=== PATIENT | female | born 1935 | race Caucasian/White ===

== ENCOUNTER 2023-08-11 10:45 | Inpatient (IN) | payer MEDICARE, MEDICAID, SELFPAY ==
[2023-08-11] VITALS (19 sets, daily range): BP systolic 132–226; BP diastolic 65–120; PULSE 80–104; RESP 15–23; TEMP 36.7–36.8; O2SAT 94–100; BMI 26.2
--- NOTE | 2023-08-11 11:17 | PC.PHAR ---
PT STATES HAS NOT TAKEN ANY OF HER MEDICATIONS FOR 2 DAYS DUE TO CURRENT ISSUE. 08/11/23
--- NOTE | 2023-08-11 11:40 | ED_ITS ---
HPI - GI Bleed 2 General: Chief complaint: GI Bleed Stated complaint: blood in stool Time Seen by Provider: 08/11/23 11:13 Source: patient Mode of arrival: ambulatory History of Present Illness: 87-year-old female presents to the [facility] ency room with blood in the stool. She woke yesterday with diarrhea had had some blood in her stool then and then again this morning she woke with significant amounts of blood. No significant abdominal pain. She denies any vomiting. Blood she passed was a combination of bright red blood in maroonish stool. No hemoptysis or coffee-ground emesis. She is not on any anticoagulants does take aspirin daily she had routine colonoscopies to the age of 77 these were negative for any significant pathology. Her only previous abdominal surgery was an appendectomy. Associated symptoms: Denies abdominal pain, chills, fever(s) or rash Review of Systems 2 Const: Denies: fever(s) or chills Card: Denies: chest pain Resp: Denies: dyspnea GI: Reports: hematochezia; Denies: abdominal pain : Denies: dysuria, urinary frequency or urinary urgency Musc: Denies: neck pain or back pain Skin/Breast: Denies: rash PFSH ED 2 PFSH: Medical History (Updated 08/11/23 @ 16:05 by Nathen Phan DO) Type 2 diabetes mellitus Hypertension Surgical History (Updated 08/11/23 @ 11:41 by Nathen Phan DO) Hx of appendectomy Physical Exam 2 Const: COMMON NORMALS: no acute distress GENERAL APPEARANCE: cooperative and comfortable ORIENTATION/CONSCIOUSNESS: Yes awake, Yes oriented to person, Yes oriented to place and Yes oriented to time HENMT: COMMON NORMALS: normocephalic, atraumatic and hearing grossly normal bilaterally HEAD & SCALP: normocephalic and atraumatic Resp: COMMON NORMALS: normal respiratory effort, No retractions, No use of accessory muscles and clear to auscultation bilaterally AUSCULTATION: clear to auscultation bilaterally Cardio: COMMON NORMALS: regular rate, regular rhythm and No murmurs present (Cardio) RATE: regular rate RHYTHM: regular rhythm GI: COMMON NORMALS: Soft to palpation and No hepatosplenomegaly present A USCULTATION: Yes normoactive bowel sounds PALPATION: Yes Soft to palpation, No Tenderness to palpation present (GI), No Guarding due to palpation present (GI) and Yes No hepatosplenomegaly present Extremity: COMMON NORMALS: normal to inspection, capillary refill normal, no clubbing, cyanosis or edema, no calf tenderness and no pedal edema Neuro: SENSORIUM/ORIENTATION: Yes oriented to person, Yes oriented to place and Yes oriented to time Skin: COMMON NORMALS: no rashes or lesions noted GENERAL SKIN EXAM: no rashes or lesions noted Course 2 Vital Signs: Vital signs: Vital Signs Temperature 98.1 F 08/11/23 10:54 Pulse Rate 104 H 08/11/23 11:51 Respiratory Rate 23 H 08/11/23 11:51 Blood Pressure 164/73 08/11/23 12:03 Pulse Oximetry 100 08/11/23 11:51 Oxygen Delivery Me thod Room Air 08/11/23 11:51 MDM - GI Bleed Medical Decision Making Rectal exam with maroonish colored stool which is sharply Hemoccult positive. Hemoglobin 8.8 initially and repeat is 8.4 we do not have a base to compare to. Will admit to cover with antibiotics possibility of diverticular source of bleeding although there is no signs of diverticulitis on the CT. Keep patient n.p.o. start Protonix. Differential Diagnosis Likely hematochezia and melena Medical Records I reviewed the patient's medical records. Lab Data I reviewed the patient's lab results. 08/11/23 15:39 08/11/23 11:30 Radiology Impressions Abdomen/Pelvis CT 08/11/23 12:59 IMPRESSION: 1. Right upper pole renal cyst possibly complicated by thin internal septation. Recommend ultrasound for initial further characterization. 2. Moderate-sized hiatal hernia. Findings consistent with several duodenal diverticuli without secondary evidence of acute inflammatory change. 3. Severe colonic diverticulosis without secondary evidence of acute diverticulitis. 4. Diffuse bladder wall thickening, possible layering soft tissue density material in the dependent portion of the bladder. This could reflect inflammatory debris or hemorrhage or other process. Recommend correlation with urinalysis and consideration for cystoscopy 5. Findings consistent with small uterine fibroids. Six. Please see above additional comments. COMMENTS: Consistent with the [employer]'s Incidental Findings Committee white paper (J Am Kristopher Radiol 2018): Any incidental renal lesion less than 1 cm or classified as too small to characterize, or any incidental cystic renal lesion characterized as simple-appearing, is likely benign. No follow-up imaging is recommended for these lesions per consensus recommendations based on imaging criteria. Laboratory Results WBC 5.47 10^3/uL (3.29-11.43) 08/11/23 15:39 RBC 2.82 10^6/uL (3.85-5.65) L 08/11/23 15:39 Hgb 8.40 g/dL (11.27-16.99) L 08/11/23 15:39 Hct 26.4 % (36-47) L 08/11/23 15:39 MCV 93.6 fl (85-98) 08/11/23 15:39 MCH 29.8 pg (27-33) 08/11/23 15:39 MCHC 31.8 g/dL (30-55) 08/11/23 15:39 RDW 12.9 % (12.1-15.1) 08/11/23 15:39 Plt Count 216 10^3/cmm (157-399) 08/11/23 15:39 MPV 9.4 fL (7.4-10.4) 08/11/23 15:39 Neut % (Auto) 60.0 % 08/11/23 15:39 Lymph % (Auto) 29.1 % 08/11/23 15:39 [place] % (Auto) 9.3 % 08/11/23 15:39 Eos % (Auto) 0.9 % 08/11/23 15:39 Baso % (Auto) 0.5 % 08/11/23 15:39 Neut # (Auto) 3.28 10^3/uL (1.8-7.7) 08/11/23 15:39 Lymph # (Auto) 1.6 10^3/uL (0.8-4.8) 08/11/23 15:39 [place] # (Auto) 0.5 10^3/uL (0.2-0.9) 08/11/23 15:39 Eos # (Auto) 0.1 10^3/uL (0.0-0.8) 08/11/23 15:39 Baso # (Auto) 0.0 10^3/uL (0.0-0.1) 08/11/23 15:39 Nucleated RBC % (auto) 0 % 08/11/23 15:39 Nucleated RBCs # 0.0 /100WBC 08/11/23 15:39 PT 13.50 SECONDS (12.1-14.9) 08/11/23 11:30 INR 1.00 (0.8-1.2) 08/11/23 11:30 APTT 19.5 SECONDS (23.9-36.7) L 08/11/23 11:30 Sodium 143 mmol/L (136-145) 08/11/23 11:30 Potassium 4.0 mmol/L (3.5-5.1) 08/11/23 11:30 Chloride 108 mmol/L (98-107) H 08/11/23 11:30 Carbon Dioxide 26 mmol/L (22-29) 08/11/23 11:30 Anion Gap 13.0 (5-19) 08/11/23 11:30 BUN 25 mg/dL (8-23) H 08/11/23 11:30 Creatinine 0.5 mg/dL (0.5-0.9) 08/11/23 11:30 GFR Calculation Not Reportable 08/11/23 11:30 Glucose 125 mg/dL (65-115) H 08/11/23 11:30 Calculated Osmolality 302 mOsm/kg (285-295) H 08/11/23 11:30 Calcium 8.9 mg/dL (8.5-10.5) 08/11/23 11:30 Total Bilirubin 0.3 mg/dL (0.15-1.2) 08/11/23 11:30 AST 13 U/L (0-32) 08/11/23 11:30 ALT 6 U/L (0-33) 08/11/23 11:30 Alkaline Phosphatase 63 U/L (35-105) 08/11/23 11:30 Total Protein 6.3 g/dL (6.6-8.7) L 08/11/23 11:30 Albumin 3.9 g/dL (3.5-5.2) 08/11/23 11:30 Globulin 2.4 g/dL (1.3-4.6) 08/11/23 11:30 Blood Type O Positive 08/11/23 11:30 Rho(D) Type Rh positive 08/11/23 11:30 Antibody Screen Negative 08/11/23 11:30 All radiology interpretation(s) finalized by discharge Discharge Plan Discharge Patient Disposition: Admitted As Inpatient Clinical Impression: GI bleed, Anemia Condition: Stable Prescriptions: No Action metformin 500 mg tablet 500 mg PO DAILY enalapril maleate 20 mg tablet 20 mg PO DAILY simvastatin 40 mg tablet 40 mg PO DAILY omeprazole 20 mg capsule,delayed release(DR/EC) 20 mg PO DAILY hydrochlorothiazide 25 mg tablet 25 mg PO DAILY naproxen 500 mg tablet 500 mg PO BID Referrals: Mitzi Armendariz NARCOTICS AGENT [Primary Care Provider] - Coding Level of Care Code ED Coordinator Volunteer Services for [facility] Guillaume
[2023-08-11 11:42] LABS: Basophils % 0.4 %; Eosinophils % 0.2 %; Hematocrit 28.5 % (36-47); Lymphocytes # 1.3 10^3/uL (0.8-4.8); Lymphocytes % 22.8 %; Mean Corpuscular HGB Conc 30.9 g/dL (30-55); Mean Corpuscular Volume 94.1 fl (85-98); Mean Platelet Volume 9.9 fL (7.4-10.4); Monocytes # 0.4 10^3/uL (0.2-0.9); Monocytes % 6.7 %; Neutrophils # 3.85 10^3/uL (1.8-7.7); Neutrophils % 69.7 %; Nucleated Red Blood Cells % 0 %; Platelet Count 220 10^3/cmm (157-399); Red Blood Count 3.03 10^6/uL (3.85-5.65); White Blood Count 5.52 10^3/uL (3.29-11.43)
[2023-08-11 12:03] LABS: Alanine Aminotransferase 6 U/L (0-33); Albumin Level 3.9 g/dL (3.5-5.2); Alkaline Phosphatase 63 U/L (35-105); Aspartate Amino Transferase 13 U/L (0-32); Blood Urea Nitrogen 25 mg/dL (8-23); Calcium 8.9 mg/dL (8.5-10.5); Carbon Dioxide 26 mmol/L (22-29); Chloride 108 mmol/L (98-107); Globulin 2.4 g/dL (1.3-4.6); Glucose 125 mg/dL (65-115); Osmolality Calculated 302 mOsm/kg (285-295); Sodium 143 mmol/L (136-145); Total Bilirubin 0.3 mg/dL (0.15-1.2); Total Protein 6.3 g/dL (6.6-8.7)
[2023-08-11 12:08] LABS: Partial Thromboplastin Time 19.5 SECONDS (23.9-36.7)
--- NOTE | 2023-08-11 12:59 | CTR_ITS ---
PROCEDURE INFORMATION: Exam: CT Abdomen And Pelvis With Contrast Exam date and time: 08/11/2023 1:13 PM Age: 87 years old Clinical indication: Abdominal pain; Additional info: Abd pain/gi bleed TECHNIQUE: Imaging protocol: Computed tomography of the abdomen and pelvis with contrast. Radiation optimization: All CT scans at this facility use at least one of these dose optimization techniques: automated exposure control; mA and/or kV adjustment per patient size (includes targeted exams where dose is matched to clinical indication); or iterative reconstruction. Contrast material: OMNI 350; Contrast volume: 75 ml; Contrast route: INTRAVENOUS (IV); COMPARISON: No relevant prior studies available. RADIATION DOSE METRICS: Total DLP (mGy-cm): 373.3 FINDINGS: Lungs: Imaged portions of the lung bases demonstrate minimal scarring and/or atelectasis. Heart: There is dense calcification associated with the mitral valve annulus. Coronary arteries: Coronary artery atherosclerotic calcification. Diaphragm: Moderate-sized hiatal hernia. Liver: Unremarkable. Gallbladder and bile ducts: Gallbladder is unremarkable. No extrahepatic biliary ductal dilatation for age. Pancreas: Unremarkable. Spleen: Unremarkable. Adrenal glands: Not enlarged. Kidneys and ureters: A water attenuation 1.5 cm right renal upper pole cyst is present, which may be complicated by thin internal septation. Bilateral renal hypodensities are noted, too small to fully characterize but statistically most likely small cysts. Stomach and bowel: Localized gas collections associated with the 2nd and 3rd portions of the duodenum consistent with small duodenal diverticuli moderate amount of retained stool in the colon. Diverticulosis is present, severe in the sigmoid colon Appendix: No acute inflammatory change of the appendix identified. Intraperitoneal space: No significant volume of free fluid identified. Vasculature: atherosclerotic vascular calcification present without abdominal aortic aneurysm. Lymph nodes: No adenopathy noted. Urinary bladder: Diffuse thickening of the urinary bladder wall. There is suggestion of layering soft tissue density material in the dependent portion of the urinary bladder (series 7, image 33 and other images), recommend correlation with urinalysis and consideration for cystoscopy. Reproductive: Uterine fundal mass suggesting small fibroid. Bones/joints: Skeletal windows demonstrate scattered degenerative changes. There is grade 1 anterolisthesis of L4 on L5 which is thought to be degenerative. Soft tissues: Minimal fat containing umbilical hernia. CT/CT abdomen pelvis w con* [id number] IMPRESSION: 1. Right upper pole renal cyst possibly complicated by thin internal septation. Recommend ultrasound for initial further characterization. 2. Moderate-sized hiatal hernia. Findings consistent with several duodenal diverticuli without secondary evidence of acute inflammatory change. 3. Severe colonic diverticulosis without secondary evidence of acute diverticulitis. 4. Diffuse bladder wall thickening, possible layering soft tissue density material in the dependent portion of the bladder. This could reflect inflammatory debris or hemorrhage or other process. Recommend correlation with urinalysis and consideration for cystoscopy 5. Findings consistent with small uterine fibroids. Six. Please see above additional comments. COMMENTS: Consistent with the [employer]'s Incidental Findings Committee white paper (J Am Kristopher Radiol 2018): Any incidental renal lesion less than 1 cm or classified as too small to characterize, or any incidental cystic renal lesion characterized as simple-appearing, is likely benign. No follow-up imaging is recommended for these lesions per consensus recommendations based on imaging criteria.
[2023-08-11] MEDS: iohexol 350 mg/mL 500 mL Btl (per mL) IV (13:20)
[2023-08-11 15:42] LABS: Basophils % 0.5 %; Eosinophils # 0.1 10^3/uL (0.0-0.8); Eosinophils % 0.9 %; Hematocrit 26.4 % (36-47); Lymphocytes # 1.6 10^3/uL (0.8-4.8); Lymphocytes % 29.1 %; Mean Corpuscular HGB Conc 31.8 g/dL (30-55); Mean Corpuscular Hemoglobin 29.8 pg (27-33); Mean Corpuscular Volume 93.6 fl (85-98); Mean Platelet Volume 9.4 fL (7.4-10.4); Monocytes # 0.5 10^3/uL (0.2-0.9); Monocytes % 9.3 %; Neutrophils # 3.28 10^3/uL (1.8-7.7); Nucleated Red Blood Cells % 0 %; Platelet Count 216 10^3/cmm (157-399); Red Blood Count 2.82 10^6/uL (3.85-5.65); Red Cell Distribution Width 12.9 % (12.1-15.1); White Blood Count 5.47 10^3/uL (3.29-11.43)
[2023-08-11] MEDS: ciprofloxacin 400 MG/200 ML PREMIX 200 MG IV (16:07)
[2023-08-11] MEDS: pantoprazole 40 mg SDV 80 MG IVP (16:08)
[2023-08-11] MEDS: metroNIDAZOLE IV 500 MG/100 ML PREMIX 100 MG IV ×2 (16:12→23:22)
--- NOTE | 2023-08-11 16:15 | PM.HP ---
Providers/Chief Complaint Primary Care Provider: BETO Del Rosario Chief Complaint: blood in stool History of Present Illness Heather Nicole is a 87 year old female with history of type 2 diabetes hypertension presented with complaint of bright red blood in stools 2 episodes since yesterday. She reports she has been having loose watery diarrhea since 2 days probably after eating turkey but yesterday night, she had bright red blood in stools and this morning she had an episode of bright red blood mixed with maroon stools. She denies any history of fever abdominal pain nausea vomiting chest pain dizziness or shortness of breath. No prior history of GI bleed in the past. She has not been eating any solids or liquids for the last 2 days for fear of diarrhea. On arrival in ER she was found to have hemoglobin of 8.8 MD exam showed dark maroon stools. CT scan showed multiple diverticula but no evidence of diverticulitis Review of Systems General: Reports: 10 or more systems reviewed and unremarkable except in HPI and below Medications/Allergies Home Medications Medication Instructions Recorded Confirmed Last Taken Type enalapril maleate 20 mg tablet 20 mg PO DAILY 08/11/23 08/11/23 08/09/23 History hydrochlorothiazide 25 mg tablet 25 mg PO DAILY 08/11/23 08/11/23 08/09/23 History metformin 500 mg tablet 500 mg PO DAILY 08/11/23 08/11/23 08/09/23 History naproxen 500 mg tablet 500 mg PO BID 08/11/23 08/11/23 08/09/23 History omeprazole 20 mg capsule,delayed 20 mg PO DAILY 08/11/23 08/11/23 08/09/23 History release simvastatin 40 mg tablet 40 mg PO DAILY 08/11/23 08/11/23 08/09/23 History Allergies Allergy/AdvReac Type Severity Reaction Status Date / Time No Known Allergies Allergy Verified 08/11/23 10:59 PFSH Acute PFSH: Medical History Type 2 diabetes mellitus Hypertension Surgical History Hx of appendectomy Vitals/I&O/Wt Last Vital Signs Temp 98.1 F 08/11/23 10:54 Pulse 104 H 08/11/23 11:51 Resp 23 H 08/11/23 11:51 BP 164/73 08/11/23 12:03 Pulse Ox 100 08/11/23 11:51 O2 Del Method Room Air 08/11/23 11:51 Weight last 48 hrs Weight 53.524 kg Physical Exam Narrative: She is alert awake oriented x 3, not in acute distress Chest clear to auscultation bilaterally Cardiovascular normal heart sounds, systolic murmur present in left second intercostal space. Abdomen soft nontender nondistended normal bowel sounds Extremities no edema noted bilaterally Data 08/11/23 15:39 08/11/23 11:30 A&P Assessment and plan (1) GI bleed: (2) Type 2 diabetes mellitus: (3) Hypertension: (4) Anemia: Plan 87 year old female with history of type 2 diabetes hypertension presented with complaint of bright red blood in stools 2 episodes since yesterday likely secondary to GI bleed. GI bleed-monitor CBC every 6 hours, last hemoglobin was 8.4, trending down Continue IV fluids D5 half NS at 100 mL/h Cannot rule out infectious cause, will continue with IV ciprofloxacin 400 mg every 12 hours and Flagyl 500 mg every 8 hours IV Protonix 40 mg twice daily P.o. Carafate 1 g daily IV Zofran 4 mg every 8 hours as needed Will transfuse PRBC if hemoglobin less than 7. Follow-up surgery consult Hypertension-missed her morning dose. will give Iv hydralazine 10mg stat and monitor will resume home dose of enalapril 20 mg daily hydrochlorothiazide 25 mg daily Resume simvastatin 40 mg daily Diabetes-she is n.p.o. for now Will do correction scale insulin Hold metformin for now DVT prophylaxis with SCD GI prophylaxis, she is already on IV Protonix CODE STATUS discussed with patient and son at bedside, she is full code for now Attestations Medical Necessity Statement*: She needs continued hospitalization crossing 2 midnights for management of GI bleed with IV fluids monitoring of CBC and surgery consult for possible upper GI endoscopy and colonoscopy Time Spent in Patient Care: 30 minutes Coding Level of Care Code Acute Code for [facility] Fwd Diagnoses GI bleed K92.2 Type 2 diabetes mellitus E11.9 Hypertension I10 Anemia D64.9 Time Spent (min) 30
--- NOTE | 2023-08-11 16:44 | P.CONIM_ITS ---
Providers/Reason For Consult 2 Consulting Physician/Specialty*: Medicine Reason for Consult*: GI bleed Requesting Physician: Natalie Marie MD Attending Physician: Natalie Marie MD Primary Care Provider: BETO Del Rosario History of Present Illness History of Present Illness Heather Nicole is a 87 year old female who presents to ED with two days of diarrhea including two episodes of BRBPR. No prior GI bleeds, not on anticoagulation, last colonoscopy 10-15 years ago. Review of Systems 2 General: Reports: 10 or more systems reviewed and unremarkable except in HPI and below GI: Reports: abdominal pain, diarrhea and hematochezia; Denies: vomiting Medications/Allergies Home Medications Medication Instructions Recorded Confirmed Last Taken Type enalapril maleate 20 mg tablet 20 mg PO DAILY 08/11/23 08/11/23 08/09/23 History hydrochlorothiazide 25 mg tablet 25 mg PO DAILY 08/11/23 08/11/23 08/09/23 History metformin 500 mg tablet 500 mg PO DAILY 08/11/23 08/11/23 08/09/23 History naproxen 500 mg tablet 500 mg PO BID 08/11/23 08/11/23 08/09/23 History omeprazole 20 mg capsule,delayed 20 mg PO DAILY 08/11/23 08/11/23 08/09/23 History release simvastatin 40 mg tablet 40 mg PO DAILY 08/11/23 08/11/23 08/09/23 History Allergies Allergy/AdvReac Type Severity Reaction Status Date / Time No Known Allergies Allergy Verified 08/11/23 10:59 PFSH Acute 2 PFSH: Medical History Type 2 diabetes mellitus Hypertension Surgical History Hx of appendectomy Vitals/I&O/Wt Last Vital Signs Temp 98.1 F 08/11/23 10:54 Pulse 80 08/11/23 16:30 Resp 23 H 08/11/23 11:51 BP 211/115 08/11/23 16:30 Pulse Ox 97 08/11/23 16:30 O2 Del Method Room Air 08/11/23 16:30 Weight last 48 hrs Weight 118 lb Physical Exam 2 Const: COMMON NORMALS: no acute distress, average body habitus, patient oriented x3, no limitations and alert GENERAL APPEARANCE: cooperative, comfortable and well kempt ORIENTATION/CONSCIOUSNESS: Yes oriented to person, Yes oriented to place and Yes oriented to time HENMT: COMMON NORMALS: normocephalic, atraumatic, external ears normal and Normal external nose present HEAD & SCALP: normocephalic and atraumatic F EDDY & SINUS: normal facial exam NOSE: Normal external nose present E XTERNAL EAR: Yes external ears normal Eye: COMMON NORMALS: EOMs intact bilaterally and no scleral icterus GENERAL EYE: appearance normal, both eyes and all related structures ALIGNMENT: Yes alignment normal PERIORBITAL: periorbital findings normal EYELID: eyelids normal Neck/C-Spine: GENERAL: Yes normal visual inspection, Yes trachea midline and No JVD Resp: COMMON NORMALS: normal respiratory effort, No retractions and No use of accessory muscles EFFORT & INSPECTION: Yes able to speak in complete sentences, Yes symmetric chest movement and Yes tachypneic Cardio: COMMON NORMALS: regular rate and regular rhythm RATE: regular rate RHYTHM: regular rhythm PERIPHERAL PULSES: radial pulses present GI: COMMON NORMALS: Soft to palpation and non-tender INSPECTION: Yes normal to inspection PALPATION: Yes Soft to palpation, No Tenderness to palpation present (GI), No Guarding due to palpation present (GI) and No Rigid due to palpation RECTAL EXAM: deferred Extremity: COMMON NORMALS: normal to inspection Neuro: COMMON NORMALS: patient oriented x3, moves all extremities and no focal motor deficits SENSORIUM/ORIENTATION: Yes alert, Yes oriented to person, Yes oriented to place and Yes oriented to time SPEECH: speech normal Psych: COMMON NORMALS: mental status grossly normal, Normal thought process present, cooperative, normal affect, speech normal and activity/motor behavior normal APPEARANCE: Yes well kempt ATTITUDE: Yes calm and Yes engaged A CTIVITY/MOTOR BEHAVIOR: Yes appropriate eye contact SPEECH: Yes normal speech MOOD & AFFECT: Yes euthymic mood THOUGHT PROCESS: Normal thought process present THOUGHT CONTENT: Yes Normal thought content present A TTENTION/CONCENTRATION: Yes attention grossly intact and Yes concentration grossly intact MEMORY/COGNITION: Yes memory grossly intact and Yes cognition grossly intact INSIGHT: Good insight present (Psych) JUDGEMENT: Good judgement present (Psych) Skin: COMMON NORMALS: no rashes or lesions noted GENERAL SKIN EXAM: no rashes or lesions noted Data 08/11/23 15:39 08/11/23 11:30 CT Abd/Pel: I personally reviewed and interpreted this imaging study as follows: My impression: Extensive sigmoid diverticulosis without radiographic evidence of colitis. Air spaces in duodenum possibly represent duodenal diverticuli, no radiographic evidence of inflammation. Radiologist's impression: 1. Right upper pole renal cyst possibly complicated by thin internal septation. Recommend ultrasound for initial further characterization. 2. Moderate-sized hiatal hernia. Findings consistent with several duodenal diverticuli without secondary evidence of acute inflammatory change. 3. Severe colonic diverticulosis without secondary evidence of acute diverticulitis. 4. Diffuse bladder wall thickening, possible layering soft tissue density material in the dependent portion of the bladder. This could reflect inflammatory debris or hemorrhage or other process. Recommend correlation with urinalysis and consideration for cystoscopy 5. Findings consistent with small uterine fibroids. Six. Please see above additional comments. A&P Assessment and plan (1) GI bleed: Qualifiers: GI bleed type/associated pathology: unspecified gastrointestinal hemorrhage type Qualified Code(s): K92.2 - Gastrointestinal hemorrhage, unspecified Plan Relatively healthy 87F with diarrhea and BRBPR with evidence of diverticulosis of sigmoid and duodenum. -Agree with admission and resuscitation by primary service -Plan for upper and lower endoscopy after bowel prep Coding Level of Care Code Acute Code for [facility] Fwd Diagnoses Gastrointestinal hemorrhage, unspecified gastrointestinal hemorrhage type K92.2 GI bleed type/associated pathology: unspecified gastrointestinal hemorrhage type
[2023-08-11] MEDS: D5-NS 0.45% + KCL 20 mEq 20 MEQ/1,000 ML BAG 100 MEQ IV (16:47)
[2023-08-11] MEDS: hyDRALAzine 20 mg/mL INJ 1 mL 10 MG IVP ×2 (17:08→23:03)
[2023-08-11 17:43] LABS: Basophils % 0.5 %; Eosinophils # 0.1 10^3/uL (0.0-0.8); Hematocrit 28.7 % (36-47); Lymphocytes # 1.9 10^3/uL (0.8-4.8); Lymphocytes % 29.8 %; Mean Corpuscular Hemoglobin 29.2 pg (27-33); Mean Corpuscular Volume 94.1 fl (85-98); Mean Platelet Volume 9.6 fL (7.4-10.4); Monocytes # 0.6 10^3/uL (0.2-0.9); Monocytes % 9.5 %; Neutrophils # 3.65 10^3/uL (1.8-7.7); Neutrophils % 58.9 %; Nucleated Red Blood Cells % 0 %; Platelet Count 232 10^3/cmm (157-399); Red Blood Count 3.05 10^6/uL (3.85-5.65)
[2023-08-11 18:13] LABS: Glucose Point of Care 114 mg/dL (70-110)
[2023-08-11] MEDS: hydroCHLOROthiazide 25 mg Tablet PO (18:23)
[2023-08-11] MEDS: peg /e-lyte soln 4,000 mL Btl 1500 ML PO (19:52)
--- NOTE | 2023-08-11 20:29 | PC.NURSE ---
PATIENT MONEY removed patients sealed envelope with pre-counted and signed money that had been locked in pyxis to transfer with patient to ICU. envelope was given to JIMMY Reynolds to lock up in the ICU pyxis.
[2023-08-11 21:02] LABS: Glucose Point of Care 122 mg/dL (70-110)
--- NOTE | 2023-08-11 21:35 | PC.NURSE ---
Addendum entered by Gail Yeh RN 08/11/23 21:40: Upon arrival to unit, envelope with large sum of tejada from patient's belongings received from Jie Donald RN. security amy Alvares, as well as cleaner housekeeping JIMMY Noel notified. Decision made to place money in security safe for security purposes. Money recounted with JIMMY Peterson and security amy Alvares. Total $1,070. Money sealed in tamper evident envelope and removed from unit to security safe by security amy Alvares. Original Note: Upon arrival to unit, patient's belongings included a large sum of tejada. Myself and Giorgio (security) witnessed JIMMY Reynolds count the amount totaling $1,070 and one wallet. The amount was sealed in an envelope and was placed in the security safe by Giorgio (security). Patient aware and consenting to place in security safe.
[2023-08-11] MEDS: acetaminophen 325 mg Tablet 650 MG PO (23:21)
--- NOTE | 2023-08-11 23:31 | PC.NURSE ---
Patient was complaining of generalized pain, I spoke with Dr. Adhikari and she gave a verbal order for acetaminophen 650mg PO Q6H PRN for pain.
[2023-08-12] VITALS (52 sets, daily range): BP systolic 109–170; BP diastolic 57–102; PULSE 70–123; RESP 13–28; TEMP 36.5–37.2; O2SAT 94–99; BMI 24.2
[2023-08-12] MEDS: ciprofloxacin 400 MG/200 ML PREMIX 200 MG IV ×2 (03:21→16:44)
[2023-08-12] MEDS: D5-NS 0.45% + KCL 20 mEq 20 MEQ/1,000 ML BAG 100 MEQ IV ×3 (04:27→21:41)
[2023-08-12 05:04] LABS: Basophils % 0.4 %; Eosinophils % 0.6 %; Hematocrit 26.7 % (36-47); Lymphocytes # 1.1 10^3/uL (0.8-4.8); Lymphocytes % 15.6 %; Mean Corpuscular HGB Conc 31.5 g/dL (30-55); Mean Corpuscular Hemoglobin 29.3 pg (27-33); Mean Platelet Volume 9.4 fL (7.4-10.4); Monocytes # 0.5 10^3/uL (0.2-0.9); Monocytes % 7.2 %; Neutrophils # 5.16 10^3/uL (1.8-7.7); Neutrophils % 75.8 %; Nucleated Red Blood Cells % 0 %; Platelet Count 213 10^3/cmm (157-399); Red Blood Count 2.87 10^6/uL (3.85-5.65); White Blood Count 6.81 10^3/uL (3.29-11.43)
[2023-08-12 05:19] LABS: Alanine Aminotransferase 6 U/L (0-33); Albumin Level 3.8 g/dL (3.5-5.2); Alkaline Phosphatase 62 U/L (35-105); Anion Gap 13.5 (5-19); Aspartate Amino Transferase 15 U/L (0-32); Blood Urea Nitrogen 14 mg/dL (8-23); Carbon Dioxide 26 mmol/L (22-29); Chloride 108 mmol/L (98-107); Creatinine Clr Calc Pharmacy 46.8084; Globulin 2.2 g/dL (1.3-4.6); Glucose 162 mg/dL (65-115); Magnesium 1.8 mg/dL (1.7-2.3); Osmolality Calculated 302 mOsm/kg (285-295); Potassium 3.5 mmol/L (3.5-5.1); Sodium 144 mmol/L (136-145); Total Bilirubin 0.3 mg/dL (0.15-1.2)
--- NOTE | 2023-08-12 06:39 | P.PN_ITS ---
Subjective 2 Subjective: No acute events overnight. Bowel prep completed without complication. RN reports still some slight blood in thin liquid brown stool. Patient reports feeling much better this morning. Vitals/I&O/Wt Last Vital Signs Temp 98.9 F 08/12/23 03:45 Pulse 75 08/12/23 05:40 Resp 21 H 08/12/23 04:00 BP 147/80 08/12/23 04:00 Pulse Ox 97 08/12/23 04:00 O2 Del Method Room Air 08/12/23 03:45 08/11/23 08/11/23 08/12/23 14:59 22:59 06:59 Intake Total 300 / 300 1300 / 1600 Output Total 600 / 600 Balance -300 / -300 1300 / 1000 Weight last 48 hrs Weight 129 lb 8 oz Weight 118 lb Physical Exam 2 Const: COMMON NORMALS: no acute distress, average body habitus, patient oriented x3, no limitations and alert GENERAL APPEARANCE: cooperative, comfortable and well kempt ORIENTATION/CONSCIOUSNESS: Yes oriented to person, Yes oriented to place and Yes oriented to time HENMT: COMMON NORMALS: normocephalic, atraumatic, external ears normal and Normal external nose present HEAD & SCALP: normocephalic and atraumatic F EDDY & SINUS: normal facial exam NOSE: Normal external nose present E XTERNAL EAR: Yes external ears normal Eye: COMMON NORMALS: EOMs intact bilaterally and no scleral icterus GENERAL EYE: appearance normal, both eyes and all related structures ALIGNMENT: Yes alignment normal PERIORBITAL: periorbital findings normal EYELID: eyelids normal Neck/C-Spine: GENERAL: Yes normal visual inspection, Yes trachea midline and No JVD Resp: COMMON NORMALS: normal respiratory effort, No retractions and No use of accessory muscles EFFORT & INSPECTION: Yes able to speak in complete sentences, Yes symmetric chest movement and Yes tachypneic (mild) Cardio: COMMON NORMALS: regular rate and regular rhythm RATE: regular rate RHYTHM: regular rhythm PERIPHERAL PULSES: radial pulses present GI: COMMON NORMALS: Soft to palpation and non-tender INSPECTION: Yes normal to inspection PALPATION: Yes Soft to palpation, No Tenderness to palpation present (GI), No Guarding due to palpation present (GI) and No Rigid due to palpation RECTAL EXAM: deferred (to be performed in GI suite at time of colonoscopy) Extremity: COMMON NORMALS: normal to inspection Neuro: COMMON NORMALS: patient oriented x3, moves all extremities and no focal motor deficits SENSORIUM/ORIENTATION: Yes alert, Yes oriented to person, Yes oriented to place and Yes oriented to time SPEECH: speech normal Psych: COMMON NORMALS: mental status grossly normal, Normal thought process present, cooperative, normal affect, speech normal and activity/motor behavior normal APPEARANCE: Yes well kempt ATTITUDE: Yes calm and Yes engaged A CTIVITY/MOTOR BEHAVIOR: Yes appropriate eye contact SPEECH: Yes normal speech MOOD & AFFECT: Yes euthymic mood THOUGHT PROCESS: Normal thought process present THOUGHT CONTENT: Yes Normal thought content present A TTENTION/CONCENTRATION: Yes attention grossly intact and Yes concentration grossly intact MEMORY/COGNITION: Yes memory grossly intact and Yes cognition grossly intact INSIGHT: Good insight present (Psych) JUDGEMENT: Good judgement present (Psych) Skin: COMMON NORMALS: no rashes or lesions noted GENERAL SKIN EXAM: no rashes or lesions noted Data 08/12/23 04:27 08/12/23 04:27 A&P Assessment and plan (1) GI bleed: Qualifiers: GI bleed type/associated pathology: unspecified gastrointestinal hemorrhage type Qualified Code(s): K92.2 - Gastrointestinal hemorrhage, unspecified Plan Relatively healthy 87F with diarrhea and BRBPR with evidence of diverticulosis of sigmoid and duodenum. -Proceed with upper and lower endoscopy Attestations 2 Medical Necessity Statement*: She needs continued hospitalization crossing 2 midnights for management of GI bleed with IV fluids, monitoring of CBC, and upper GI endoscopy and colonoscopy Time Spent in Patient Care: 30 minutes Coding Level of Care Code Acute Code for [facility] Fwd Diagnoses Gastrointestinal hemorrhage, unspecified gastrointestinal hemorrhage type K92.2 GI bleed type/associated pathology: unspecified gastrointestinal hemorrhage type
--- NOTE | 2023-08-12 06:54 | P.ANESASSM_ITS ---
Pre-Anesthetic Assessment Height/Weight: Height 1.5 m Weight 54.431 kg Temp Pulse Resp BP Pulse Ox O2 Del Method 98.9 F 75 21 H 147/80 97 Room Air 08/12/23 03:45 08/12/23 05:40 08/12/23 04:00 08/12/23 04:00 08/12/23 04:00 08/12/23 03:45 Operation Date: 08/12/23 07:00 Proposed Procedures p EGD and colonoscopy(Not Applicable) - Stefan Scott MD p Colonoscopy(Not Applicable) - Stefan Scott MD Familial anesthetic complications: None Was Beta Mariella taken within 24 hours: N/A Was Clonidine taken within 24 hours: N/A Last intake: > 8 hrs Social No alcohol and No tobacco Exam alert, oriented x 3, clear to auscultation bilaterally and regular rate & rhythm CV/HEM Hypertension Metabolic Diabetes Mellitus Anesthetic Plan ASA status: 2 Anesthesia: MAC Risk of > 500 ml blood loss (7ml/kg in children): No Medications/Allergies Home Medications Medication Instructions Recorded Confirmed Last Taken Type enalapril maleate 20 mg tablet 20 mg PO DAILY 08/11/23 08/11/23 08/09/23 History hydrochlorothiazide 25 mg tablet 25 mg PO DAILY 08/11/23 08/11/23 08/09/23 History metformin 500 mg tablet 500 mg PO DAILY 08/11/23 08/11/23 08/09/23 History naproxen 500 mg tablet 500 mg PO BID 08/11/23 08/11/23 08/09/23 History omeprazole 20 mg capsule,delayed 20 mg PO DAILY 08/11/23 08/11/23 08/09/23 History release simvastatin 40 mg tablet 40 mg PO DAILY 08/11/23 08/11/23 08/09/23 History Allergies Allergy/AdvReac Type Severity Reaction Status Date / Time No Known Allergies Allergy Verified 08/11/23 10:59 Current Medications Generic Name Dose Route Start Last Admin Trade Name Freq PRN Reason Stop Dose Admin Acetaminophen 650 mg 08/11/23 22:54 08/11/23 23:21 Acetaminophen 325 Mg Tablet PO 650 mg Q6H PRN Administration MILD PAIN Hydralazine HCl 10 mg 08/11/23 16:55 08/11/23 23:03 Hydralazine 20 Mg/Ml Inj 1 Ml IVP 10 mg Q4H PRN Administration HYPERTENSION Hydrochlorothiazide 25 mg 08/11/23 17:05 08/11/23 18:23 Hydrochlorothiazide 25 Mg Tablet PO 25 mg DAILY BRYANNA Administration Potassium Chloride/Dextrose/Sod Cl 20 meq in 1,000 mls @ 100 mls/hr 08/11/23 16:05 08/12/23 07:43 D5-Ns 0.45% + Kcl 20 Meq IV 100 mls/hr .Q10H BRYANNA Infusion Ciprofloxacin/Dextrose 400 mg in 200 mls @ 200 mls/hr 08/12/23 04:00 08/12/23 04:51 Cipro IV Infused Q12H BRYANNA Infusion Protocol Metronidazole 500 mg in 100 mls @ 100 mls/hr 08/12/23 00:00 08/12/23 07:49 Flagyl Iv IV 100 mls/hr Q8H BRYANNA Administration Protocol Insulin Human Lispro 0 unit 08/11/23 18:00 08/12/23 07:45 Insulin Lispro 100 Unit/1 Ml SUBCUT Not Given WM&BEDTIME BRYANNA Protocol PFSH Anesthesia Medical History Type 2 diabetes mellitus Hypertension Surgical History Hx of appendectomy Data Anesthesia 08/12/23 04:27 08/12/23 04:27 Short CBC 08/11/23 08/11/23 08/11/23 Range/Units 11:30 15:39 17:36 WBC 5.52 5.47 6.20 (3.29-11.43) 10^3/uL Hgb 8.80 L 8.40 L 8.90 L (11.27-16.99) g/dL Hct 28.5 L 26.4 L 28.7 L (36-47) % MCV 94.1 93.6 94.1 (85-98) fl Plt Count 220 216 232 (157-399) 10^3/cmm Neut % (Auto) 69.7 60.0 58.9 % Neut # (Auto) 3.85 3.28 3.65 (1.8-7.7) 10^3/uL 08/12/23 Range/Units 04:27 WBC 6.81 (3.29-11.43) 10^3/uL Hgb 8.40 L (11.27-16.99) g/dL Hct 26.7 L (36-47) % MCV 93.0 (85-98) fl Plt Count 213 (157-399) 10^3/cmm Neut % (Auto) 75.8 % Neut # (Auto) 5.16 (1.8-7.7) 10^3/uL BMP 08/11/23 08/12/23 11:30 04:27 Sodium 143 144 Potassium 4.0 3.5 Chloride 108 H 108 H Carbon Dioxide 26 26 BUN 25 H 14 Creatinine 0.5 0.5 Glucose 125 H 162 H Calcium 8.9 9.0 Liver Function 08/11/23 08/12/23 Range/Units 11:30 04:27 Total Bilirubin 0.3 0.3 (0.15-1.2) mg/dL AST 13 15 (0-32) U/L ALT 6 6 (0-33) U/L Alkaline Phosphatase 63 62 (35-105) U/L Albumin 3.9 3.8 (3.5-5.2) g/dL Blood Bank 08/11/23 11:30 Blood Type O Positive Rho(D) Type Rh positive Antibody Screen Negative Coags 08/11/23 11:30 PT 13.50 INR 1.00 APTT 19.5 L Cardiac Studies: 2 No Data to Display
[2023-08-12 07:48] LABS: Glucose Point of Care 100 mg/dL (70-110)
[2023-08-12] MEDS: metroNIDAZOLE IV 500 MG/100 ML PREMIX 100 MG IV ×3 (07:49→23:26)
--- NOTE | 2023-08-12 07:55 | ANE.PACU2 ---
Inpatient post-anesthesia follow up: Airway intact: Yes Vital signs: Temperature 98.9 F Pulse Rate 75 Respiratory Rate 21 Blood Pressure 147/80 Pulse Oximetry 97 Oxygen Delivery Me thod Room Air Oxygen Flow Rate Fraction of Inspir ed Oxygen Hydration adequate: Yes Nausea and vomiting: No Pain level: 1 Mental status: Baseline
[2023-08-12] MEDS: lisinopril 20 mg Tablet PO (08:37)
[2023-08-12] MEDS: atorvastatin 40 mg Tablet 20 MG PO (08:37)
[2023-08-12] MEDS: hydroCHLOROthiazide 25 mg Tablet PO (08:37)
[2023-08-12] MEDS: sucralfate 1 gm Tablet PO (08:38)
[2023-08-12 12:16] LABS: Glucose Point of Care 111 mg/dL (70-110)
--- NOTE | 2023-08-12 12:27 | PC.NURSE ---
Report given to JIMMY Sinclair. Patient to transfer to [facility] surgical floor room 251-2.
[2023-08-12] MEDS: hyDRALAzine 20 mg/mL INJ 1 mL 5 MG IVP (12:34)
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
[2023-08-12 16:51] LABS: Glucose Point of Care 125 mg/dL (70-110)
[2023-08-12 18:21] LABS: Basophils % 0.6 %; Eosinophils # 0.2 10^3/uL (0.0-0.8); Eosinophils % 3.5 %; Hematocrit 25.9 % (36-47); Lymphocytes # 1.2 10^3/uL (0.8-4.8); Lymphocytes % 22.8 %; Mean Corpuscular HGB Conc 30.5 g/dL (30-55); Mean Corpuscular Hemoglobin 29.3 pg (27-33); Mean Corpuscular Volume 95.9 fl (85-98); Mean Platelet Volume 9.4 fL (7.4-10.4); Monocytes # 0.5 10^3/uL (0.2-0.9); Monocytes % 8.8 %; Neutrophils # 3.48 10^3/uL (1.8-7.7); Neutrophils % 63.9 %; Nucleated Red Blood Cells % 0 %; Platelet Count 215 10^3/cmm (157-399); Red Cell Distribution Width 13.2 % (12.1-15.1); White Blood Count 5.44 10^3/uL (3.29-11.43)
[2023-08-12 21:16] LABS: Glucose Point of Care 126 mg/dL (70-110)
[2023-08-13] VITALS: BP 147/72; PULSE 79; RESP 16; TEMP 36.7; O2SAT 93
[2023-08-13 01:14] LABS: Basophils % 0.6 %; Eosinophils # 0.2 10^3/uL (0.0-0.8); Eosinophils % 4.6 %; Hematocrit 23.1 % (36-47); Lymphocytes # 1.1 10^3/uL (0.8-4.8); Lymphocytes % 23.6 %; Mean Corpuscular Hemoglobin 29.4 pg (27-33); Mean Corpuscular Volume 91.7 fl (85-98); Mean Platelet Volume 9.2 fL (7.4-10.4); Monocytes # 0.4 10^3/uL (0.2-0.9); Monocytes % 9.3 %; Neutrophils # 2.93 10^3/uL (1.8-7.7); Neutrophils % 61.7 %; Nucleated Red Blood Cells % 0 %; Platelet Count 204 10^3/cmm (157-399); Red Blood Count 2.52 10^6/uL (3.85-5.65); White Blood Count 4.75 10^3/uL (3.29-11.43)
[2023-08-13] MEDS: hyDRALAzine 20 mg/mL INJ 1 mL 5 MG IVP (03:39)
[2023-08-13] MEDS: ciprofloxacin 400 MG/200 ML PREMIX 200 MG IV (03:39)
[2023-08-13 04:00] VITALS: BP 169/91; PULSE 84; RESP 16; TEMP 37.1; O2SAT 96
[2023-08-13 04:55] LABS: Basophils % 0.4 %; Eosinophils # 0.3 10^3/uL (0.0-0.8); Eosinophils % 5.4 %; Hematocrit 24.3 % (36-47); Lymphocytes # 1.3 10^3/uL (0.8-4.8); Lymphocytes % 25.3 %; Mean Corpuscular HGB Conc 31.7 g/dL (30-55); Mean Corpuscular Hemoglobin 29.7 pg (27-33); Mean Corpuscular Volume 93.8 fl (85-98); Mean Platelet Volume 9.7 fL (7.4-10.4); Monocytes # 0.5 10^3/uL (0.2-0.9); Monocytes % 9.6 %; Neutrophils # 2.95 10^3/uL (1.8-7.7); Neutrophils % 58.9 %; Nucleated Red Blood Cells % 0 %; Platelet Count 226 10^3/cmm (157-399); Red Blood Count 2.59 10^6/uL (3.85-5.65); White Blood Count 5.01 10^3/uL (3.29-11.43)
[2023-08-13 05:15] LABS: Alanine Aminotransferase < 5 U/L (0-33); Albumin Level 3.5 g/dL (3.5-5.2); Alkaline Phosphatase 61 U/L (35-105); Anion Gap 10.8 (5-19); Aspartate Amino Transferase 17 U/L (0-32); Blood Urea Nitrogen 6 mg/dL (8-23); Calcium 8.9 mg/dL (8.5-10.5); Carbon Dioxide 25 mmol/L (22-29); Chloride 108 mmol/L (98-107); Creatinine Clr Calc Pharmacy 43.3747; Globulin 2.2 g/dL (1.3-4.6); Glucose 132 mg/dL (65-115); Osmolality Calculated 289 mOsm/kg (285-295); Potassium 3.8 mmol/L (3.5-5.1); Sodium 140 mmol/L (136-145); Total Bilirubin 0.4 mg/dL (0.15-1.2); Total Protein 5.7 g/dL (6.6-8.7)
[2023-08-13 06:41] LABS: Glucose Point of Care 115 mg/dL (70-110)
[2023-08-13 07:30] VITALS: BP 160/71; PULSE 90; RESP 18; TEMP 36.1; O2SAT 96
[2023-08-13] MEDS: lisinopril 20 mg Tablet PO (08:03)
[2023-08-13] MEDS: metroNIDAZOLE IV 500 MG/100 ML PREMIX 100 MG IV (08:04)
[2023-08-13] MEDS: atorvastatin 40 mg Tablet 20 MG PO (08:04)
[2023-08-13] MEDS: sucralfate 1 gm Tablet PO (08:04)
[2023-08-13] MEDS: hydroCHLOROthiazide 25 mg Tablet PO (08:04)
[2023-08-13] MEDS: pantoprazole 40 mg SDV IVP (08:05)
[2023-08-13 08:09] LABS: Ferritin 15 ng/mL (15-150); Iron 41 ug/dL (37-145); Total Iron Binding Capacity 272 mcg/dl; Unsaturated Iron Binding 231 ug/dL (112-347)
--- NOTE | 2023-08-13 09:54 | PC.CHAP ---
Pastoral Care Encounter/Spiritual Assessment Type of Contact [] Declined director social service visit [] Patient/Family/Request visit [] Outpatient visit [] Follow-up visit [] Physician referral [] Code/Alert [x] Routine visit [] Staff referral [] Actively dying [] Patient sleeping [] Family support [] [] Out of room [] Palliative care [] [] Receiving care in room [] Pre-surgical visit [] Trauma [] Long length of stay [] ICU visit [] Other: Relational/Emotional Strength [] Patient feels connected with others/family/visitors/staff [] Distress [] Loneliness/isolation [] Abandonment Spirituality of Patient [x] Person of Kaya [x] Attends Church of their [place]aya [] Believes in Prayer [] Reads Bible or Orthodox materials [] There are Spiritual issues to be addressed Dietician Interventions [x] Prayer [x] Active listening [] Non-anxious presence [] Spiritual/emotional support [] Crisis/trauma care [] Spiritual counseling [] Bereavement support [] Provided bereavement packet [x] Provided Bible/devotional materials [] Provided toy/stuffed animal, coloring book to patient or family member [] Provided Communion [] Anointing/[place] [] Salvation [x] Completed spiritual assessment [] Other: Impact on Illness or Injury [] Angry [] Fearful [] Anxious [] Often cries [] Exhaustion [] Unable to work [] Unable to attend temple [] Unable to walk/stand [] Unable to read [] Unable to drive [] Unable to eat/drink [] Unable to sleep [] Unable to be with family [] Patient intubated [] Other: Summary Time spent with patient 5 min
--- NOTE | 2023-08-13 11:04 | PC.SOCIAL ---
IMM Update pg 2 of IMM updated and reviewed w/ patient. Copy provided and copy dated, initialed and placed in chart.
[2023-08-13 11:52] VITALS: BP 160/71; PULSE 90; RESP 18; TEMP 36.7; O2SAT 96
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
--- NOTE | 2023-08-13 12:39 | P.DS_ITS ---
Discharge Providers Date of Admission: 08/11/23 16:06 Date of Discharge: August 13, 2023 Attending Provider at Admission: Natalie Marie MD Attending Provider at Discharge: Nikolas Dexter MD Primary Care Provider: BETO Del Rosario Diagnoses at Discharge Discharge Diagnosis (1) GI bleed: Status: Acute Qualifiers: GI bleed type/associated pathology: unspecified gastrointestinal hemorrhage type Qualified Code(s): K92.2 - Gastrointestinal hemorrhage, unspecified Reason for Visit Reason for Visit: blood in stool Hospital Course Hospital Course Reviews an 87-year-old white female who presents to the hospital with blood in her stool, and was found to be significantly anemic. She was originally given some Carafate. Surgery consult was obtained. Anti-inflammatories were held. As there was concern for colitis she was also given Cipro and Flagyl. CT abdomen and pelvis demonstrated diverticuli without diverticulitis. Moderate hiatal hernia. EGD performed demonstrated esophageal erosion, duodenal ulcer. Colonoscopy could not be completed secondary to poor preparation. During her hospital stay her hemoglobin remained relatively stable, and was 7.7 at discharge. She was asymptomatic without any dizziness or shortness of breath with ambulation. She wanted to go home, and it was reasonable to go home at this point. She will discharge on Carafate and Protonix. She will follow-up with general surgery as an outpatient for consideration of colonoscopy. She should return for any bleeding. She is to avoid any anti-inflammatories. She is not to start her metformin until tomorrow. She was given opportunity ask questions and agreed with the plan. Secondary to possible concern for colitis a brief course of Cipro and Flagyl was continued. She will need a CBC on follow- up with her primary care provider, and other recommendations as noted in the discharge orders. Physical Exam Narrative: General exam no distress Neck supple Cardiovascular regular rate and rhythm Lungs clear Abdomen soft nontender Extremities no sinus clubbing or edema. Discharge Data Studies Completed and Pending Completed Studies During Hospitalization Category Date Time Status CT abdomen pelvis w con* [id number] Stat Cat Scan 08/11/23 12:59 Completed Pending at discharge Category Date Time Status Complete Blood Count w/Auto AM LABS Lab 08/14/23 04:00 Ordered Comprehensive Metabolic Panel AM LABS Lab 08/14/23 04:00 Ordered Stool Culture - Enteric [Salmonella / Shigella / Campy] Lab 08/11/23 22:39 Received Routine Radiology Impressions Abdomen/Pelvis CT 08/11/23 12:59 IMPRESSION: 1. Right upper pole renal cyst possibly complicated by thin internal septation. Recommend ultrasound for initial further characterization. 2. Moderate-sized hiatal hernia. Findings consistent with several duodenal diverticuli without secondary evidence of acute inflammatory change. 3. Severe colonic diverticulosis without secondary evidence of acute diverticulitis. 4. Diffuse bladder wall thickening, possible layering soft tissue density material in the dependent portion of the bladder. This could reflect inflammatory debris or hemorrhage or other process. Recommend correlation with urinalysis and consideration for cystoscopy 5. Findings consistent with small uterine fibroids. Six. Please see above additional comments. COMMENTS: Consistent with the [employer]'s Incidental Findings Committee white paper (J Am Kristopher Radiol 2018): Any incidental renal lesion less than 1 cm or classified as too small to characterize, or any incidental cystic renal lesion characterized as simple-appearing, is likely benign. No follow-up imaging is recommended for these lesions per consensus recommendations based on imaging criteria. Laboratory Results WBC 5.01 10^3/uL (3.29-11.43) 08/13/23 04:12 RBC 2.59 10^6/uL (3.85-5.65) L 08/13/23 04:12 Hgb 7.70 g/dL (11.27-16.99) L 08/13/23 04:12 Hct 24.3 % (36-47) L 08/13/23 04:12 MCV 93.8 fl (85-98) 08/13/23 04:12 MCH 29.7 pg (27-33) 08/13/23 04:12 MCHC 31.7 g/dL (30-55) 08/13/23 04:12 RDW 13.0 % (12.1-15.1) 08/13/23 04:12 Plt Count 226 10^3/cmm (157-399) 08/13/23 04:12 MPV 9.7 fL (7.4-10.4) 08/13/23 04:12 Neut % (Auto) 58.9 % 08/13/23 04:12 Lymph % (Auto) 25.3 % 08/13/23 04:12 [place] % (Auto) 9.6 % 08/13/23 04:12 Eos % (Auto) 5.4 % 08/13/23 04:12 Baso % (Auto) 0.4 % 08/13/23 04:12 Neut # (Auto) 2.95 10^3/uL (1.8-7.7) 08/13/23 04:12 Lymph # (Auto) 1.3 10^3/uL (0.8-4.8) 08/13/23 04:12 [place] # (Auto) 0.5 10^3/uL (0.2-0.9) 08/13/23 04:12 Eos # (Auto) 0.3 10^3/uL (0.0-0.8) 08/13/23 04:12 Baso # (Auto) 0.0 10^3/uL (0.0-0.1) 08/13/23 04:12 Nucleated RBC % (auto) 0 % 08/13/23 04:12 Nucleated RBCs # 0.0 /100WBC 08/13/23 04:12 PT 13.50 SECONDS (12.1-14.9) 08/11/23 11:30 INR 1.00 (0.8-1.2) 08/11/23 11:30 APTT 19.5 SECONDS (23.9-36.7) L 08/11/23 11:30 Sodium 140 mmol/L (136-145) 08/13/23 04:12 Potassium 3.8 mmol/L (3.5-5.1) 08/13/23 04:12 Chloride 108 mmol/L (98-107) H 08/13/23 04:12 Carbon Dioxide 25 mmol/L (22-29) 08/13/23 04:12 Anion Gap 10.8 (5-19) 08/13/23 04:12 BUN 6 mg/dL (8-23) L 08/13/23 04:12 Creatinine 0.6 mg/dL (0.5-0.9) 08/13/23 04:12 GFR Calculation Not Reportable 08/13/23 04:12 Glucose 132 mg/dL (65-115) H 08/13/23 04:12 POC Glucose 115 mg/dL (70-110) H 08/13/23 06:30 Calculated Osmolality 289 mOsm/kg (285-295) 08/13/23 04:12 Calcium 8.9 mg/dL (8.5-10.5) 08/13/23 04:12 Magnesium 1.8 mg/dL (1.7-2.3) 08/12/23 04:27 Iron 41 ug/dL (37-145) 08/13/23 04:12 TIBC 272 mcg/dl 08/13/23 04:12 % Saturation 15.0 % (20-50) L 08/13/23 04:12 Unsat Iron Binding 231 ug/dL (112-347) 08/13/23 04:12 Ferritin 15 ng/mL (15-150) 08/13/23 04:12 Total Bilirubin 0.4 mg/dL (0.15-1.2) 08/13/23 04:12 AST 17 U/L (0-32) 08/13/23 04:12 ALT < 5 U/L (0-33) 08/13/23 04:12 Alkaline Phosphatase 61 U/L (35-105) 08/13/23 04:12 Total Protein 5.7 g/dL (6.6-8.7) L 08/13/23 04:12 Albumin 3.5 g/dL (3.5-5.2) 08/13/23 04:12 Globulin 2.2 g/dL (1.3-4.6) 08/13/23 04:12 Blood Type O Positive 08/11/23 11:30 Rho(D) Type Rh positive 08/11/23 11:30 Antibody Screen Negative 08/11/23 11:30 Vitals Last Vital Signs Temp 97.0 F L 08/13/23 07:30 Pulse 90 08/13/23 07:30 Resp 18 08/13/23 07:30 BP 160/71 08/13/23 07:30 Pulse Ox 96 08/13/23 07:30 O2 Del Method Room Air 08/13/23 07:30 Discharge Plan Discharge Patient Disposition: Home Condition: Stable Prescriptions: New Protonix 40 mg tablet,delayed release (DR/EC) 40 mg PO BID Qty: 60 0RF Carafate 1 gram tablet 1 g PO TID Qty: 90 0RF Cipro 500 mg tablet 500 mg PO BID Qty: 14 0RF metronidazole 500 mg tablet 500 mg PO TID Qty: 21 0RF Continued metformin 500 mg tablet 500 mg PO DAILY enalapril maleate 20 mg tablet 20 mg PO DAILY simvastatin 40 mg tablet 40 mg PO DAILY hydrochlorothiazide 25 mg tablet 25 mg PO DAILY Discontinued omeprazole 20 mg capsule,delayed release(DR/EC) 20 mg PO DAILY naproxen 500 mg tablet 500 mg PO BID Discharge Orders: Discharge Order (Routine); Ordered 08/13/23 Ordered By: Nikolas Dexter Referrals: Jim Nolen MD [Physician] - 09/05/23 10:00 am (Consideration of colonoscopy. ) Mitzi Armendariz FNP [Primary Care Provider] - 08/16/23 11:00 am (Consider H. pylori antigen stool testing, CBC on follow-up in 3 days to 5 days) Discharge Diet: Advance as tolerated Discharge Activity: Increase activity as tolerated Patient Instructions: Ciprofloxacin (By mouth), Sucralfate (By mouth), Metronidazole (By mouth), Pantoprazole (By mouth), Diverticulosis (GEN), GI Discharge Instructions, Opioid Safety Activity Restrictions/Additional Instructions: Avoid caffeine. No anti-inflammatories. Take all medicine as prescribed. For any recurrent bleeding return to your primary care provider. Do not resume your metformin, until tomorrow. Follow-up with general surgery for consideration of colonoscopy. This was incomplete during this hospital stay. Discharge Attestations Time Spent in Discharge Care*: greater than 30 min Quality Metrics Clinical Quality Measures [ No reported AMI, CVA or VTE this stay] Coding Level of Care Code 29450 Total time (in minutes) for Discharge: 38 Diagnoses Gastrointestinal hemorrhage, unspecified gastrointestinal hemorrhage type K92.2 GI bleed type/associated pathology: unspecified gastrointestinal hemorrhage type
== END 2023-08-13 11:52 | disposition home or self-care (01) | DRG 378 ==
LOC: ER 16:05 → MEDSURG 17:52 → ICU 08-12 06:29 → MEDSURG 08-12 13:19
PROVIDERS: Surgery; Admitting Provider Internal Medicine; Emergency Provider Family Medicine; PCP Nurse Practitioner Family; Visit Provider Internal Medicine
PROC: 0DJD8ZZ Inspection of Lower Intestinal Tract, Via Natural or Artificial Opening Endoscopic (ICD-10-PCS; CPT 45330; 2023-08-12 07:00)
PROC: 0DJ08ZZ Inspection of Upper Intestinal Tract, Via Natural or Artificial Opening Endoscopic (ICD-10-PCS; CPT 43235; 2023-08-12 07:00)
DX: K92.2 Gastrointestinal hemorrhage, unspecified (principal); K22.10 Ulcer of esophagus without bleeding; D64.9 Anemia, unspecified; K57.30 Diverticulosis of large intestine without perforation or abscess without bleeding; K44.9 Diaphragmatic hernia without obstruction or gangrene; K26.9 Duodenal ulcer, unspecified as acute or chronic, without hemorrhage or perforation; K52.9 Noninfective gastroenteritis and colitis, unspecified; Z79.82 Long term (current) use of aspirin; E11.9 Type 2 diabetes mellitus without complications; Z79.84 Long term (current) use of oral hypoglycemic drugs; I10 Essential (primary) hypertension
CPT/HCPCS: 36415; 36416; 43235; 45330; 74177; 80053; 82728; 82962; 83540; 83550; 83630; 83735; 85025; 85610; 85730; 86850; 86900; 87045; 87427; 87449; 96365; 96367; 96375; 96376; 99285; C9113; J0360; J0744; J2704; J3490; Q9967